=== PATIENT | female | born 1980 | race Caucasian/White ===

== ENCOUNTER 2016-06-25 11:26 | Emergency (ER) | payer MEDICAID ==
[~2016-06-25] VITALS: Ht 162.6 cm; Wt 67.0 kg
[~2016-06-25 11:26] MED LIST: PRENAT PO
[2016-06-25 11:28] VITALS: Ht 162.6 cm; Wt 67.0 kg
--- NOTE | 2016-06-25 16:27 | RADRPT ---
PROCEDURE: Orbital ultrasound CLINICAL INDICATION: Blindness in the left eye TECHNIQUE: Overall ultrasound was performed bilaterally. Michael scale and color imaging was utilize d. No contrast was administered. COMPARISON: None available FINDINGS: The right eye optic globe is clear. The vitreous humor is preserved. There is echogenic debris in t he left eye consistent with rectal detachment with hemorrhage. IMPRESSION: 1. Left eye retinal detachment with hemorrhage. RPTAT: HMJB .Eric Akhtar MD, MD Date Time Electronically viewed and signed by .Eric Akhtar MD, MD on 06/25/2016 16:27 .B/
--- NOTE | 2016-06-25 17:53 | ERA ---
ER Documentation Chief Complaint Date/Time DATE: 06/25/16 TIME: 17:43 Chief Complaint LEFT EYE BLURRY VISION.SENT BY PMD (VANIA RODRIGUEZ PA-C) HPI Patient is a 36-year-old female with a chief complaint of unilateral left progressive decreased vision. 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 Patient describes the loss of vision as progressive blurriness. Patient claims that she cannot see anything out of her left eye. Patient denies any pain, trauma, drug or alcohol use, headache, dizziness, decreased hearing. Patient has history of diabetes mellitus. (VANIA RODRIGUEZ PA-C) ROS All systems reviewed and are negative except as per history of present illness. (VANIA RODRIGUEZ PA-C) Medications Home Meds Reported Medications Multivit/Min/Fol Ac/Iron/Pren* ( S*) 1 Tab Tab, 1 TAB PO DAILY, TAB 08/24/15 Allergies Allergies: Coded Allergies: No Known Allergy (Unverified , 06/25/16) PMhx/Soc Hx Miscellaneous Medical Probl: No (dm) Hx Alcohol Use: No Hx Substance Use: No Hx Tobacco Use: No (VANIA RODRIGUEZ PA-C) Physical Exam Vitals Vital Signs Date Time Temp Pulse Resp B/P Pulse Ox O2 Delivery O2 Flow Rate FiO2 06/25/16 11:28 98.0 88 18 125/64 98 (KWABENA MCDANIEL DO) Physical Exam Const: [] Head: Atraumatic Eyes: Normal Conjunctiva ENT: Normal External Ears, Nose and Mouth. Neck: Full range of motion..~ No meningismus. Resp: Clear to auscultation bilaterally Cardio: Regular rate and rhythm, no murmurs Abd: Soft, non tender, non distended. Normal bowel sounds Skin: No petechiae or rashes Back: No midline or flank tenderness Ext: No cyanosis, or edema Neur: Awake and alert Psych: Normal Mood and Affect (VANIA RODRIGUEZ PA-C) Procedures/MDM 36-year-old female with a history of diabetes mellitus. Patient has left unilateral painless loss of vision. Description of vision loss was poor. Visual acuity of the left eye was unobtainable due to the loss of vision. Right eye visual acuity was roughly 20/40. Talk to my attending at the time Drs. Melchor, and he agreed that an ultrasound was next best step. Patient's current blood glucose is 306. Ultrasound called to notify of a retinal detachment with hemorrhage. Notify Dr. Mcdaniel of retinal hemorrhage. Will prepare for transfer. (VANIA RODRIGUEZ PA-C) Spoke with this 36-year-old female after. Four-minute she had a retinal detachment. Attempt is made to transfer. [facility], stated the patient does not be transferred acutely as they will not perform any surgical intervention tonight. She recommends discharge with instructions to follow-up with [facility] emergency room tomorrow. Patient still still has some lateral vision in the left eye but is not able to see any in lead is on the visual acuity chart. I'm informed her of the ophthalmologists input. She will follow-up first thing in the morning at [facility] emergency room. (KWABENA MCDANIEL DO) Departure Diagnosis: Primary Impression: Retinal detachment, left Condition: Stable VANIA RODRIGUEZ PA-C Jun 25, 2016 17:53 KWABENA MCDANIEL DO Jun 25, 2016 21:42
[2016-06-25 21:45] VITALS: BP 139/86; PULSE 77; RESP 16
== END 2016-06-25 21:46 | disposition home or self-care (01) ==
LOC: FTE 11:26
DX: H33.052 Total retinal detachment, left eye (principal); E11.9 Type 2 diabetes mellitus without complications
CPT/HCPCS: 76536; Z7502